=== PATIENT | female | born 1970 | race Two or more races ===

== ENCOUNTER 2025-03-10 20:32 | Inpatient (IN) | payer MEDICAID, OTHER ==
[~2025-03-10] VITALS: Ht 175.3 cm; Wt 63.0 kg
[2025-03-10] MEDS ORDERED: KETOROLAC TROMETH 30 MG/ML 1ML VIAL IV ONE (20:45)
--- NOTE | 2025-03-10 20:50 | ED.PDOC ---
GI ASSESSMENT HPI Comments 54 year old female came to ER via EMS due to abdominal pain. Patient picked up at [facility], has history of hypertension, CKF, encephalopathy and alcohol abuse. States for the past 3 days, she has been having diffuse abdominal pain with bouts of nausea and vomiting. States she could not keep anything in. Complaining also of back pains and headaches. Denies any recent alcohol intake, REVIEW OF SYSTEMS: General: No fever, no chills, or fatigue HEENT: No sore throat, no earache, no congestion, no neck pain. Cardiac: No chest pain. No palpitations. Lungs: No shortness of breath, no cough. GI: (+) nausea, (+) vomiting, no diarrhea, no constipation, (+) abdominal pain : No dysuria, frequency, or urgency. No hematuria. Musculoskeletal: No joint pain , no joint swelling, no extremity edema. (+)back pains Skin: No rash, no itching. Neuro: (+) headache, no dizziness, no weakness PHYSICAL EXAM: General: Awake, alert and oriented. No acute distress. Skin: Skin in warm, dry and intact. Appropriate color for ethnicity. HEENT: The head is normocephalic and atraumatic. Conjunctivae are clear without exudates or hemorrhage. Sclera is non-icteric. EOM are intact. No signs of nystagmus. Eyelids are normal in appearance without swelling or lesions. Oral mucosa is pink and moist Neck: The neck is supple with normal range of motion. No JVD. Cardiac: Heart rate and rhythm are normal. No murmurs, gallops, or rubs are auscultated. Respiratory: No signs of respiratory distress. Lung sounds are clear in all lobes bilaterally without rales, rhonchi, or wheezes. Abdominal: Abdomen is soft, generally-tender without distention, guarding or rigidity. Bowel sounds are present and normoactive in all four quadrants. Extremities: Upper and lower extremities are atraumatic in appearance without deformity or edema. Neurological: The patient is awake, alert and oriented to person, place, and time with normal speech. Speech is clear. There is no facial asymmetry. Psychiatric: Appropriate mood and affect. Good judgement and insight. Chief Complaint: Abdominal Pain Time Seen by MD: 20:46 Reviewed Notes: Court Advocate Notes Allergies: Coded Allergies: Tetanus Toxoid (Verified Allergy, Unknown, 03/10/25) Information Source: Patient, Emergency Med Personnel Mode of Arrival: EMS Past Medical History PAST MEDICAL HISTORY: CKF, HTN Surgical History: Denies all surgeries PROGRAM ANALYST History: Denies all PROGRAM ANALYST Hx Family History Family History: No family hx of Cancer Social History Smoker: Non-Smoker Alcohol: Heavy Drugs: Denies Drug Use Lives In: Assisted Care EKG EKG : Pulse Rate (adult): 95 Cardiac Rhythm: NSR Was a procedure done? Was a procedure done?: No GI differential Dx Differential Diagnosis: Diverticular disease, Gastritis/PUD, Gastroenteritis, Pancreatitis, UTI, Urolithiasis, Dehydration X-Ray, Labs, Meds, VS Vital Signs Date Time Temp Pulse Resp B/P (MAP) Pulse Ox O2 Delivery O2 Flow Rate FiO2 03/10/25 20:53 95 03/10/25 20:50 95 03/10/25 20:35 98.0 114 18 155/103 94 98.0 Lab Test 03/10/25 21:14 Range/Units White Blood Count 25.4 H 4.4-10.8 10^3/uL Red Blood Count 4.51 4.0-5.20 10^6/uL Hemoglobin 10.3 L 12.2-16.2 g/dL Hematocrit 33.1 L 36.0-46.0 % Mean Corpuscular Volume 73.3 L 80.0-100.0 fL Mean Corpuscular Hemoglobin 22.8 L 28.0-32.0 pg Mean Corpuscular Hemoglobin Concent 31.1 L 32.0-36.0 g/dL Red Cell Distribution Width 21.2 H 11.8-14.3 % Platelet Count 593 H 140-450 10^3/uL Mean Platelet Volume 8.4 6.9-10.8 fL Neutrophils (%) (Auto) 37.0-80.0 % Lymphocytes (%) (Auto) 10.0-50.0 % Monocytes (%) (Auto) 0.0-12.0 % Basophils (%) (Auto) 0.0-2.0 % Neutrophils # (Auto) 1.6-8.6 10 ^3/uL Lymphocytes # (Auto) 0.4-5.4 10 ^3/uL Monocytes # (Auto) 0-1.3 10 ^3/uL Differential Total Cells Counted 100.0 100 Neutrophils % (Manual) 90 H 37.0-80.0 Band Neutrophils % (Manual) 2 Lymphocytes % (Manual) 2 L 10.0-50.0 Monocytes % (Manual) 6 0-12 Eosinophils % (Manual) 0 0-7 Basophils % (Manual) 0 0.0-2.0 Metamyelocytes % (manual) 0 Myelocytes % (Manual) 0 Promyelocytes % (Manual) 0 Blast Cells % (Manual) 0 Reactive Lymphocytes 0 Platelet Estimate Increased Hypochromasia (manual) Moderate Anisocytosis (manual) Slight Microcytosis Moderate Sodium Level 135 L 136-145 mmol/L Potassium Level 3.6 3.5-5.1 mmol/L Chloride Level 99 98-107 mmol/L Carbon Dioxide Level 23 20-31 mmol/L Anion Gap 13 5-15 Blood Urea Nitrogen 17 9-23 mg/dL Creatinine 0.55 0.550-1.02 mg/dL Glomerular Filtration Rate Calc 110 >90 mL/min BUN/Creatinine Ratio 30.9 H 10.0-20.0 Serum Glucose 146 H 74-106 mg/dL Lactic Acid Level 1.6 0.4-2.0 mmol/L Calcium Level 9.5 8.7-10.4 mg/dL Total Bilirubin 0.6 0.2-1.0 mg/dL Aspartate Amino Transferase (AST) 13 13-40 U/L Alanine Aminotransferase (ALT) 10 7-40 U/L Alkaline Phosphatase 123 H 46-116 U/L Total Protein 7.8 5.7-8.2 g/dL Albumin 4.7 3.2-4.8 g/dL Lipase 26 12-53 U/L Plasma/Serum Blood Alcohol 3.0 <10 mg/dL Exam: CT CT AB PEL WO CON-NO ORAL OR IV History: n , vomiting, generalized abdominal pain Comparison Study: None TECHNIQUE: Multidetector CT of the abdomen and pelvis was performed from lung bases to pubic symphysis. Imaging was performed without IV contrast. Axial, coronal, and sagittal multiplanar reformats were obtained from the axial data set by the technologist. RADIATION DOSE: CTDI vol 7.9 mGy. DLP 483.17 mGy.cm Findings: Limited evaluation of the solid organs in the absence of IV contrast. Lungs: Basilar atelectasis/scarring. Trace left pleural effusion. Wall thickening of the distal esophagus. Liver: Unremarkable. Spleen: Unremarkable. Pancreas: Unremarkable. Gallbladder: Unremarkable. Adrenals: Unremarkable Kidneys: Unremarkable. Pelvic Viscera: Unremarkable. Vasculature: Mild atherosclerotic vascular calcification. Retroperitoneum: Shotty retroperitoneal nodes. Bowel: Portions of the bowel are decompressed, limiting assessment. Fluid-filled appearance of the small bowel. Musculoskeletal: Sclerotic changes across the opposing endplates of L4-5 with grade 1 anterolisthesis and loss of intervertebral disc height. Soft tissues: Unremarkable Impression: 1. Fluid-filled small bowel may reflect enteritis in the appropriate clinical setting. 2. Wall thickening of the distal esophagus, consider follow-up with endoscopy as clinically indicated. 3. Sclerotic changes across the opposing endplates of L4-5, possibly degenerative, though clinical correlation is suggested to exclude discitis/osteomyelitis. 4. Additional findings as detailed. Time of 1ST Reevaluation: 20:45 Reevaluation 1ST: Unchanged Patient Education/Counseling: Need For Follow Up Family Education/Counseling: No Family Present SEPSIS Sepsis Screen Physician Orders Drug Screen (03/10/25 20:42) Ct Ab Pel Wo Con-No Oral Or Iv (03/10/25 20:42) Electrocardigram (03/10/25 21:40) Vital Signs Date Time Temp Pulse Resp B/P (MAP) Pulse Ox O2 Delivery O2 Flow Rate FiO2 03/10/25 20:53 95 03/10/25 20:50 95 03/10/25 20:35 98.0 114 18 155/103 94 98.0 Laboratory Tests Test 03/10/25 21:14 Lactic Acid Level 1.6 mmol/L (0.4-2.0) White Blood Count 25.4 10^3/uL (4.4-10.8) H Departure 1 Departure Time of Disposition: 23:06 Impression: Primary Impression: Abdominal pain Additional Impression: Intractable nausea and vomiting Disposition: ADMITTED INPATIENT Condition: Stable Comments 54-year-old female who presented with intractable nausea, vomiting and abdominal pain. CT abdomen pelvis showed 1.Fluid-filled small bowel may reflect enteritis in the appropriate clinical setting. 2. Wall thickening of the distal esophagus, consider follow-up with endoscopy as clinically indicated. Patient admitted to hospitalist service for further treatment, evaluation and monitoring. Critical Care Note Critical Care Time?: No Stability Stability form required: No Heart Score Heart Score: Heart Score Response (Comments) Value History N/A 0 EKG N/A 0 Age N/A 0 Risk Factors N/A 0 Troponin N/A 0 Total 0 I personally scribed for ASIF DASH MD ([email or web address]) on 03/10/25 at 20:50. Electronically submitted by Daniel Jones ([employer]). I personally scribed for ASIF DASH MD ([email or web address]) on 03/10/25 at 20:53. Electronically submitted by Daniel Jones ([employer]). I personally scribed for ASIF DASH MD ([email or web address]) on 03/10/25 at 22:14. Electronically submitted by Daniel Jones ([employer]). ASIF DASH MD Mar 10, 2025 20:50
--- NOTE | 2025-03-10 21:30 | DVH ---
Exam: CT CT AB PEL WO CON-NO ORAL OR IV History: n , vomiting, generalized abdominal pain Comparison Study: None TECHNIQUE: Multidetector CT of the abdomen and pelvis was performed from lung bases to pubic symphysi s. Imaging was performed without IV contrast. Axial, coronal, and sagittal multiplanar reformats were obtained from the axial data set by the technologist. RADIATION DOSE: CTDI vol 7.9 mGy. DLP 483.17 mGy.cm Findings: Limited evaluation of the solid organs in the absence of IV contrast. Lungs: Basilar atelectasis/scarring. Trace left pleural effusion. Wall thickening of the distal esoph janneth. Liver: Unremarkable. Spleen: Unremarkable. Pancreas: Unremarkable. Gallbladder: Unremarkable. Adrenals: Unremarkable Kidneys: Unremarkable. Pelvic Viscera: Unremarkable. Vasculature: Mild atherosclerotic vascular calcification. Retroperitoneum: Shotty retroperitoneal nodes. Bowel: Portions of the bowel are decompressed, limiting assessment. Fluid-filled appearance of the sm all bowel. Musculoskeletal: Sclerotic changes across the opposing endplates of L4-5 with grade 1 anterolisthesis and loss of intervertebral disc height. Soft tissues: Unremarkable Impression: 1. Fluid-filled small bowel may reflect enteritis in the appropriate clinical setting. 2. Wall thickening of the distal esophagus, consider follow-up with endoscopy as clinically indicated . 3. Sclerotic changes across the opposing endplates of L4-5, possibly degenerative, though clinical co rrelation is suggested to exclude discitis/osteomyelitis. 4. Additional findings as detailed.
[2025-03-10 21:33] LABS: Hemoglobin 10.3 g/dL (12.2-16.2)
[2025-03-10 21:35] LABS: Hematocrit 33.1 % (36.0-46.0); Mean Corpuscular Hemoglobin 22.8 pg (28.0-32.0); Mean Corpuscular Volume 73.3 fL (80.0-100.0)
[2025-03-10 21:43] LABS: Alanine Aminotransferase 10 U/L (7-40); Albumin 4.7 g/dL (3.2-4.8); Anion Gap 13 (5-15); BUN/Creatinine Ratio 30.9 (10.0-20.0); Blood Urea Nitrogen 17 mg/dL (9-23); Calcium 9.5 mg/dL (8.7-10.4); Carbon Dioxide 23 mmol/L (20-31); Chloride 99 mmol/L (98-107); Lipase 26 U/L (12-53); Potassium 3.6 mmol/L (3.5-5.1); Total Protein 7.8 g/dL (5.7-8.2)
[2025-03-10 21:44] LABS: Bilirubin, Total 0.6 mg/dL (0.2-1.0)
[2025-03-10 21:47] LABS: Alkaline Phosphatase 123 U/L (46-116); Glucose 146 mg/dL (74-106); Sodium 135 mmol/L (136-145)
[2025-03-10 22:27] LABS: Total Cells Counted 100.0 (100)
[2025-03-10 22:28] LABS: Anisocytosis Slight
--- NOTE | 2025-03-10 23:58 | DVHHPRES ---
History of Present Illness Resident Creating Document: CAROLA SOLER RESIDENT History of Present Illness This is a 54-year-old female with a past medical history of hypertension, alcohol abuse who has come in with a chief complaint of abdominal pain for the past 3 days along with hematemesis of 2 episodes today morning. As per the patient she has had abdominal pain for the past 3 days and unable to keep any food down. she reports the pain began after she drank 1 and half can of beer after stopping it a few years ago. The pain is generalized all over the abdomen, 10/ 10 in intensity and not relieved by or aggravated by any factor. She says that is associated with Flu-like symptoms, nausea, headache, backache now. She also reports that she had 2 episodes of hematemesis, not mixed with any vomit today morning which prompted her to come to the visit. On inquiry patient states that she came from a [facility], which is a retired care facility and that there are many sick contacts around her. She denies any diarrhea, shortness of breath, other episodes of vomiting, chest pain or recent travel. Past medical history: Hypertension and alcohol abuse Past surgical history: Denies Family history: Denies any Allergies: To tetanus injection Social history: Patient denies drinking alcohol and reports she stopped many years ago but used to drink quite heavily, she smokes 4 cigarettes per day and it has only been 1 and half year, she denies any drug abuse Home medication: Does not take any Primary care physician: Does not have 1 Code status: Full code Review of Systems Constitutional: Yes: Weakness; No: Fever, Chills, Sweats, Malaise, Other Eyes: No: Pain, Vision change, Conjunctivae inflammation, Eyelid inflammation, Other, Redness ENT: No: Ear pain, Ear discharge, Nose pain, Nose discharge, Nose congestion, Mouth pain, Mouth swelling, Throat pain, Throat swelling, Other Respiratory: No: Cough, Dry, Shortness of breath, SOB with excertion, Wheezing, Hemoptysis, Pleuritic Pain, Sputum, Wheezing, Other Cardiovascular: No: Chest Pain, Palpitations, Orthopnea, Paroxysmal Noc. Dyspnea, Edema, Lt Headedness, Other Gastrointestinal: Vomiting, Abdominal Pain, Other (Hematemesis); No: Nausea, Diarrhea, Constipation, Melena, Hematochezia Genitourinary: No Dysuria, No Frequency, No Incontinence, No Hematuria, No Retention, No Other Musculoskeletal: No: other, neck pain, shoulder pain, arm pain, back pain, hand pain, leg pain, foot pain Skin: No: Rash, Lesions, Jaundice, Bruising, Other Neurological: No: Weakness, Numbness, Incoordination, Change in speech, Confusion, Seizures, Other Allergies: Coded Allergies: Tetanus Toxoid (Verified Allergy, Unknown, 03/10/25) Exam Vital Signs Vital Signs Date Time Temp Pulse Resp B/P (MAP) Pulse Ox O2 Delivery O2 Flow Rate FiO2 03/10/25 20:53 95 03/10/25 20:35 98.0 18 155/103 94 98.0 Exam General Appearance: Alert, Oriented X3, Cooperative, Not in acute distress HEENT: Atraumatic, Mucous membranes moist/pink Respiratory: Clear to auscultation, Normal air movement, No added sounds Cardiovascular: Regular rate, Normal S1, Normal S2, No murmurs Abdominal: Active bowel sounds, Soft, no distention, tenderness in all quadrants of the abdomen Extremities: No edema, Normal pulses, No tenderness/swelling Skin: No Significant rash, except past surgical scars Neuro: Normal speech, sensorimotor deficits none Psych/Mental Status: Mental status NL, Mood NL Nurse was there as forklift mechanic during examination Labs/Xrays Labs Test 03/10/25 21:14 Range/Units White Blood Count 25.4 H 4.4-10.8 10^3/uL Red Blood Count 4.51 4.0-5.20 10^6/uL Hemoglobin 10.3 L 12.2-16.2 g/dL Hematocrit 33.1 L 36.0-46.0 % Mean Corpuscular Volume 73.3 L 80.0-100.0 fL Mean Corpuscular Hemoglobin 22.8 L 28.0-32.0 pg Mean Corpuscular Hemoglobin Concent 31.1 L 32.0-36.0 g/dL Red Cell Distribution Width 21.2 H 11.8-14.3 % Platelet Count 593 H 140-450 10^3/uL Mean Platelet Volume 8.4 6.9-10.8 fL Neutrophils (%) (Auto) 37.0-80.0 % Lymphocytes (%) (Auto) 10.0-50.0 % Monocytes (%) (Auto) 0.0-12.0 % Basophils (%) (Auto) 0.0-2.0 % Neutrophils # (Auto) 1.6-8.6 10 ^3/uL Lymphocytes # (Auto) 0.4-5.4 10 ^3/uL Monocytes # (Auto) 0-1.3 10 ^3/uL Differential Total Cells Counted 100.0 100 Neutrophils % (Manual) 90 H 37.0-80.0 Band Neutrophils % (Manual) 2 Lymphocytes % (Manual) 2 L 10.0-50.0 Monocytes % (Manual) 6 0-12 Eosinophils % (Manual) 0 0-7 Basophils % (Manual) 0 0.0-2.0 Metamyelocytes % (manual) 0 Myelocytes % (Manual) 0 Promyelocytes % (Manual) 0 Blast Cells % (Manual) 0 Reactive Lymphocytes 0 Platelet Estimate Increased Hypochromasia (manual) Moderate Anisocytosis (manual) Slight Microcytosis Moderate Sodium Level 135 L 136-145 mmol/L Potassium Level 3.6 3.5-5.1 mmol/L Chloride Level 99 98-107 mmol/L Carbon Dioxide Level 23 20-31 mmol/L Anion Gap 13 5-15 Blood Urea Nitrogen 17 9-23 mg/dL Creatinine 0.55 0.550-1.02 mg/dL Glomerular Filtration Rate Calc 110 >90 mL/min BUN/Creatinine Ratio 30.9 H 10.0-20.0 Serum Glucose 146 H 74-106 mg/dL Lactic Acid Level 1.6 0.4-2.0 mmol/L Calcium Level 9.5 8.7-10.4 mg/dL Total Bilirubin 0.6 0.2-1.0 mg/dL Aspartate Amino Transferase (AST) 13 13-40 U/L Alanine Aminotransferase (ALT) 10 7-40 U/L Alkaline Phosphatase 123 H 46-116 U/L Total Protein 7.8 5.7-8.2 g/dL Albumin 4.7 3.2-4.8 g/dL Lipase 26 12-53 U/L Plasma/Serum Blood Alcohol 3.0 <10 mg/dL SEPSIS Sepsis Screen Date sepsis recognized/suspect: Mar 10, 2025 Time Sepsis recognized/suspect: 2034 Recent Procedure: No On Antibiotic Therapy: No Respiratory Rate >20: No Heart Rate >90: Yes Temp<36 C (96.8 F) or >38.3 C: No SBP <90 or MAP <65 mmHG: No New Acute Mental Status Change: No Is the patient on CPAP, BIPAP,: No Physician Orders Drug Screen (03/10/25 20:42) Ct Ab Pel Wo Con-No Oral Or Iv (03/10/25 20:42) Electrocardigram (03/10/25 21:40) Admit (03/10/25 23:56) Code Status (03/10/25 23:56) Ondansetron Hcl (Zofran) (03/11/25 00:00) Complete Blood Count (03/11/25 04:00) Comprehensive Metabolic Panel (03/11/25 04:00) Npo (Nothing By Mouth) Diet (03/11/25 Breakfast) Condition: Unstable (03/10/25 23:56) Acetaminophen Tablet (Tylenol Tablet) (03/11/25 00:00) Notify Of Changes From Base (03/10/25 23:56) Stat Ekg For Chest Pain (03/10/25 23:56) Vital Signs Date Time Temp Pulse Resp B/P (MAP) Pulse Ox O2 Delivery O2 Flow Rate FiO2 03/10/25 20:53 95 03/10/25 20:50 95 03/10/25 20:35 98.0 114 18 155/103 94 98.0 Laboratory Tests Test 03/10/25 21:14 Lactic Acid Level 1.6 mmol/L (0.4-2.0) White Blood Count 25.4 10^3/uL (4.4-10.8) H Assessment/Plan Assessment/Plan #Sepsis due to acute gastroenteritis #Possible esophagitis #Upper GI bleed -NPO -CT scan of the abdomen and pelvis without oral or IV contrast shows: Portions of the bowel are decompressed, limiting assessment. Fluid-filled appearance of the small bowel; Wall thickening of the distal esophagus, consider follow-up with endoscopy as clinically indicated. - GI consult - 2 wide caliber catheter was placed - IV fluid in his 0.9% 1 bolus - lactic acid - blood cultures - remove 10.5 mg IV q.4 PRN - metronidazole 500 mg IV Q 8 scheduled - ceftriaxone 1 g IV daily - COVID and flu tests - Protonix 80 mg IV once and 40 mg IV b.i.d. - liver ultrasound showed: unremarkable right upper quadrant abdominal ultrasound #anterolisthesis -CT scan of the abdomen and pelvis: Sclerotic changes across the opposing endplates of L4-5 with grade 1 anterolisthesis and loss of intervertebral disc height -outpatient followup # history of alcohol use disorder -Patient was counseled extensively on need of not taking alcohol again and the side effects, problems that it can cause for health of 8 minutes GI prophylaxis: Protonix 40 mg IV b.i.d. DVT prophylaxis: Held due to GI bleed Diet: NPO Goals of care discussed with the patient for more than 27 minutes: Full code status Case discussed with Dr. Borja, patient and nurse. Plan discussed with: Patient My Orders Orders - CAROLA SOLER RESIDENT Procedure Category Date Status Time Admit ADMIT 03/10/25 Verified 23:56 Code Status CODE 03/10/25 Verified 23:56 Ondansetron Hcl PHA 03/11/25 Verified (Zofran) 00:00 Complete Blood Count LAB 03/11/25 Verified 04:00 Comprehensive LAB 03/11/25 Verified Metabolic Panel 04:00 Npo (Nothing By DIET 03/11/25 Verified Mouth) Diet Breakfast Condition: Unstable RAMIN 03/10/25 Verified 23:56 Acetaminophen Tablet PHA 03/11/25 Verified (Tylenol Tablet) 00:00 Notify Md Of Changes RAMIN 03/10/25 Verified From Base 23:56 Stat Ekg For Chest RAMIN 03/10/25 Verified Pain 23:56 Date of Service: Mar 11, 2025 Billing Provider: JOSHUA BORJA MD Common Visit Codes: [id number] INP/OBS CARE (HIGH) CAROLA SOLER RESIDENT Mar 10, 2025 23:57 JOSHUA BOJRA MD Mar 16, 2025 11:54
[2025-03-11] MEDS ORDERED: ACETAMINOPHEN 325 MG TAB PO PRN
--- NOTE | 2025-03-11 00:32 | DVHHP2 ---
History of Present Illness HPI This is a 54-year-old female with a past medical history of hypertension, alcohol abuse who has come in with a chief complaint of abdominal pain for the past 3 days along with hematemesis of 2 episodes today morning. As per the patient she has had abdominal pain for the past 3 days and unable to keep any food down. she reports the pain began after she drank 1 and half can of beer after stopping it a few years ago. The pain is generalized all over the abdomen, 10/ 10 in intensity and not relieved by or aggravated by any factor. She says that is associated with Flu-like symptoms, nausea, headache, backache now. She also reports that she had 2 episodes of hematemesis, not mixed with any vomit today morning which prompted her to come to the visit. On inquiry patient states that she came from a [facility], which is a retired care facility and that there are many sick contacts around her. She denies any diarrhea, shortness of breath, other episodes of vomiting, chest pain or recent travel. Past medical history: Hypertension and alcohol abuse Past surgical history: Denies Family history: Denies any Allergies: To tetanus injection Social history: Patient denies drinking alcohol and reports she stopped many years ago but used to drink quite heavily, she smokes 4 cigarettes per day and it has only been 1 and half year, she denies any drug abuse Home medication: Does not take any Home Meds No Active Prescriptions or Reported Meds Review of Systems Constitutional: No symptom reported Ears, Nose, & Throat: No symptom reported Cardiovascular: No symptom reported Gastrointestinal: Nausea H&P Exam Vital Signs Vital Signs Date Time Temp Pulse Resp B/P (MAP) Pulse Ox O2 Delivery O2 Flow Rate FiO2 03/10/25 20:53 95 03/10/25 20:35 98.0 18 155/103 94 98.0 General Appeara: Well developed Head Exam: Normal inspection Neck Exam: Normal inspection Pulmonary/Respiratory: Normal inspection Cardiovascular/Chest: Normal inspection SEPSIS Sepsis Screen Date sepsis recognized/suspect: Mar 10, 2025 Time Sepsis recognized/suspect: 2034 Recent Procedure: No On Antibiotic Therapy: No Respiratory Rate >20: No Heart Rate >90: Yes Temp<36 C (96.8 F) or >38.3 C: No SBP <90 or MAP <65 mmHG: No New Acute Mental Status Change: No Is the patient on CPAP, BIPAP,: No Physician Orders Drug Screen (03/10/25 20:42) Ct Ab Pel Wo Con-No Oral Or Iv (03/10/25 20:42) Electrocardigram (03/10/25 21:40) Admit (03/10/25 23:56) Code Status (03/10/25 23:56) Ondansetron Hcl (Zofran) (03/11/25 00:00) Complete Blood Count (03/11/25 04:00) Comprehensive Metabolic Panel (03/11/25 04:00) Npo (Nothing By Mouth) Diet (03/11/25 Breakfast) Condition: Unstable (03/10/25 23:56) Acetaminophen Tablet (Tylenol Tablet) (03/11/25 00:00) Notify Of Changes From Base (03/10/25 23:56) Stat Ekg For Chest Pain (03/10/25 23:56) Pantoprazole (Protonix) (03/11/25 10:00) LIVER (03/10/25 23:58) Beta Hcg, Quantitative (03/10/25 23:58) Urinalysis (03/10/25 23:58) Covid19 Antigen Frances (03/10/25 ) Rapid Influenza A&B (03/10/25 23:58) Stool Occult Blood (03/10/25 23:58) Blood Culture (03/10/25 23:58) * [facility] Senior Analyst (03/10/25 23:58) Hydromorphone Injection (Dilaudid Inject (03/11/25 00:00) Lactic Acid W/ Reflex Order (03/10/25 23:58) Sodium Chloride 0.9% (03/11/25 00:00) Metronidazole 500mg/100ml (Flagyl 500mg/ (03/11/25 00:00) Metronidazole 500mg/100ml (Flagyl 500mg/ (03/11/25 06:00) Ceftriaxone 1gm/50ml (Rocephin) (03/12/25 09:00) Vital Signs Date Time Temp Pulse Resp B/P (MAP) Pulse Ox O2 Delivery O2 Flow Rate FiO2 03/10/25 20:53 95 03/10/25 20:50 95 03/10/25 20:35 98.0 114 18 155/103 94 98.0 Laboratory Tests Test 03/10/25 21:14 Lactic Acid Level 1.6 mmol/L (0.4-2.0) White Blood Count 25.4 10^3/uL (4.4-10.8) H Labs/Xrays Labs Test 03/10/25 21:14 Range/Units White Blood Count 25.4 H 4.4-10.8 10^3/uL Red Blood Count 4.51 4.0-5.20 10^6/uL Hemoglobin 10.3 L 12.2-16.2 g/dL Hematocrit 33.1 L 36.0-46.0 % Mean Corpuscular Volume 73.3 L 80.0-100.0 fL Mean Corpuscular Hemoglobin 22.8 L 28.0-32.0 pg Mean Corpuscular Hemoglobin Concent 31.1 L 32.0-36.0 g/dL Red Cell Distribution Width 21.2 H 11.8-14.3 % Platelet Count 593 H 140-450 10^3/uL Mean Platelet Volume 8.4 6.9-10.8 fL Neutrophils (%) (Auto) 37.0-80.0 % Lymphocytes (%) (Auto) 10.0-50.0 % Monocytes (%) (Auto) 0.0-12.0 % Basophils (%) (Auto) 0.0-2.0 % Neutrophils # (Auto) 1.6-8.6 10 ^3/uL Lymphocytes # (Auto) 0.4-5.4 10 ^3/uL Monocytes # (Auto) 0-1.3 10 ^3/uL Differential Total Cells Counted 100.0 100 Neutrophils % (Manual) 90 H 37.0-80.0 Band Neutrophils % (Manual) 2 Lymphocytes % (Manual) 2 L 10.0-50.0 Monocytes % (Manual) 6 0-12 Eosinophils % (Manual) 0 0-7 Basophils % (Manual) 0 0.0-2.0 Metamyelocytes % (manual) 0 Myelocytes % (Manual) 0 Promyelocytes % (Manual) 0 Blast Cells % (Manual) 0 Reactive Lymphocytes 0 Platelet Estimate Increased Hypochromasia (manual) Moderate Anisocytosis (manual) Slight Microcytosis Moderate Sodium Level 135 L 136-145 mmol/L Potassium Level 3.6 3.5-5.1 mmol/L Chloride Level 99 98-107 mmol/L Carbon Dioxide Level 23 20-31 mmol/L Anion Gap 13 5-15 Blood Urea Nitrogen 17 9-23 mg/dL Creatinine 0.55 0.550-1.02 mg/dL Glomerular Filtration Rate Calc 110 >90 mL/min BUN/Creatinine Ratio 30.9 H 10.0-20.0 Serum Glucose 146 H 74-106 mg/dL Lactic Acid Level 1.6 0.4-2.0 mmol/L Calcium Level 9.5 8.7-10.4 mg/dL Total Bilirubin 0.6 0.2-1.0 mg/dL Aspartate Amino Transferase (AST) 13 13-40 U/L Alanine Aminotransferase (ALT) 10 7-40 U/L Alkaline Phosphatase 123 H 46-116 U/L Total Protein 7.8 5.7-8.2 g/dL Albumin 4.7 3.2-4.8 g/dL Lipase 26 12-53 U/L Plasma/Serum Blood Alcohol 3.0 <10 mg/dL Assessment/Plan Primary Diagnosis #Sepsis due to acute gastroenteritis #Possible esophagitis #Upper GI bleed #anterolisthesis # history of alcohol use disorder admitted to med/surg consult to GI pain control Plan discussed with: Patient RUTHY ANN Mar 11, 2025 00:32
[2025-03-11 01:37] LABS: COVID19 ANTIGEN SOFIA FIA NEGATIVE (NEGATIVE)
--- NOTE | 2025-03-11 01:38 | DVH ---
INDICATION: rule out cirrhosis TECHNIQUE: Multiple real-time sonographic images were obtained of the right upper quadrant. COMPARISON: None FINDINGS: The liver demonstrates homogeneous echotexture without focal mass lesions. The liver measu res 12.2 cm. Normal hepatopetal portal venous flow appreciated. No evidence of pleural effusion or ab dominal ascites. There is no intrahepatic or extrahepatic ductal dilatation. The common duct measures 0.4 cm. The gallbladder is without evidence of stone or sludge. The gallbladder wall measures 0.2 cm and is w ithin normal limits. Negative sonographic Mcguire's sign. The right kidney measures 9.6 cm. The right kidney is normal in contour, size, and shape. The echogen icity is normal. There is no hydronephrosis. The pancreas is not well visualized due to overlying bowel gas. IMPRESSION: 1. Unremarkable right upper quadrant abdominal ultrasound.
[2025-03-11 04:03] VITALS: PULSE 140; RESP 20; O2SAT 95
[2025-03-11] MEDS: SODIUM CHLORIDE 0.9% 1,000 ML IV ONE ×2 (04:25)
[2025-03-11] MEDS: ONDANSETRON HCL 4 MG/2 ML VIAL IV ONE (04:25)
[2025-03-11] MEDS: PANTOPRAZOLE 40 MG/10 ML VIAL INJ IV ONE (04:25)
[2025-03-11] MEDS: HYDROmorphone HCL 2 MG/ML VL/or syr IV PRN (04:27)
[2025-03-11] MEDS: HYDROmorphone HCL 2 MG/ML VL/or syr IV ONE (04:40)
--- NOTE | 2025-03-11 05:45 | DVH ---
CHEST RADIOGRAPH Indication: sob Technique: Single frontal view of the chest was obtained COMPARISON: None FINDINGS: Lines and Tubes: None Lungs: Clear Pleura: No effusion. No pneumothorax. Cardiomediastinal contours: Unremarkable Bones: Unremarkable IMPRESSION: 1. No acute disease.
[2025-03-11] MEDS: LABETALOL HCL 20 MG/4 ML VL IV ONE (06:44)
--- NOTE | 2025-03-11 06:46 | ECG ---
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
[2025-03-11] MEDS: NICOTINE 7MG/24HR TOPICAL PATCH TD ONE (06:48)
[2025-03-11 07:14] LABS: Hematocrit 26.4 % (36.0-46.0); Hemoglobin 8.1 g/dL (12.2-16.2); Mean Corpuscular Hemoglobin 22.9 pg (28.0-32.0); Mean Corpuscular Volume 74.5 fL (80.0-100.0); Nucleated Red Blood Cells % 0.0 %
[2025-03-11 07:30] LABS: INR 1.07 (0.9-1.15); Partial Thromboplastin Time 25.0 SEC (24.5-34.5); Prothrombin Time 11.3 sec (9.3-11.8)
[2025-03-11 07:31] LABS: Albumin 3.8 g/dL (3.2-4.8); Alkaline Phosphatase 96 U/L (46-116); Anion Gap 8 (5-15); BUN/Creatinine Ratio 37.0 (10.0-20.0); Blood Urea Nitrogen 17 mg/dL (9-23); Carbon Dioxide 24 mmol/L (20-31); Chloride 105 mmol/L (98-107); Sodium 137 mmol/L (136-145); Total Protein 6.4 g/dL (5.7-8.2)
[2025-03-11 07:32] LABS: Alanine Aminotransferase < 9 U/L (7-40); Bilirubin, Total 0.3 mg/dL (0.2-1.0); Calcium 7.7 mg/dL (8.7-10.4); Glucose 125 mg/dL (74-106); Iron 18.0 ug/dL (50-170); Potassium 3.3 mmol/L (3.5-5.1); Total Iron Binding Capacity 338.0 ug/dL (250-425)
[2025-03-11 07:34] VITALS: PULSE 69; RESP 15; O2SAT 95
[2025-03-11] MEDS: PANTOPRAZOLE 40 MG/10 ML VIAL INJ IV SCH (11:02)
--- NOTE | 2025-03-11 14:08 | DVHPN2 ---
Progress Note Date Seen: Mar 11, 2025 Medical Necessity Reason Pt with a Central, PICC or Fol: No Subjective Review of Systems: HEENT:Normal, CVS:Normal, RESPIRATORY:Normal, GI:Normal, :Normal, MSK:Normal Objective vital signs Vital Sign Date Time Temp Pulse Resp B/P (MAP) Pulse Ox O2 Delivery O2 Flow Rate FiO2 03/11/25 12:34 74 121/71 03/11/25 07:34 15 95 Room Air* 0 21 03/11/25 07:34 97.5 97.5 Total Intake and Output 03/10/25 03/10/25 03/11/25 15:00 23:00 07:00 Intake Total 1150 ml Output Total 500 ml Balance 650 ml medications Current Medications Medications Dose Ordered Sig/Britni Route Start Time Stop Time Status Last Admin Dose Admin Ondansetron HCl 4 mg Q4HP PRN IV 03/11/25 00:00 Pantoprazole Sodium 40 mg BID IV 03/11/25 10:00 03/11/25 11:47 40 MG Hydromorphone HCl 0.25 mg Q4HPRN PRN IV 03/11/25 00:00 03/11/25 04:27 0.25 MG Metronidazole 100 ml @ 100 mls/hr Q8HR IV 03/11/25 06:00 Ceftriaxone Sodium 50 ml @ 100 mls/hr DAILY@09 IV 03/12/25 09:00 Examination: GENERAL:Normal, HEENT:Normal, NECK:Normal, LUNGS:Normal, CVS:Normal, ABDOMEN:Normal, MSK:Normal laboratory and microbiology Laboratory Tests 03/11/25 06:53 Test 03/11/25 06:53 Range/Units Serum Glucose 125 H 74-106 mg/dL Labs and/or images reviewed: Labs reviewed by me Problem List/Assessment/Plan Problem List/Assessment/Plan acute Abdominal pain Enteritis Anemia Hematemesis #Sepsis due to acute gastroenteritis #Possible esophagitis #Upper GI bleed #anterolisthesis # history of alcohol use disorder GI prophylaxis: Protonix 40 mg IV b.i.d. DVT prophylaxis: Held due to GI bleed Diet: NPO 03/11/2025: doing a bit better, pending EGD per GI Plan discussed with: Patient RUTHY ANN DO Mar 11, 2025 14:08
--- NOTE | 2025-03-11 16:56 | DVHINCON2 ---
Date of service: Mar 11, 2025 Referring Physician Miladys Reason for Consultation Hematemesis History of Present Illness Patient is a 54-year-old female with a history of hypertension, prior history of heavy alcohol abuse, admitted with nausea vomiting, and hematemesis. Patient has abdominal pain around the umbilicus. CT scan shows possible enteritis and possible esophagitis. Patient denies any recent ETOH intake. She has a history of tobacco use. She denies any aspirin NSAIDs or anticoagulant use. Patient denies any history of melena or hematochezia. She has no prior history of EGD or GI bleeding. GI consultation was obtained for evaluation Past Medical History As above Past Surgical History Denies Family History No gastrointestinal diseases or malignancies Social History As per HPI prior history of heavy EtOH abuse Allergies: Coded Allergies: Tetanus Toxoid (Verified Allergy, Unknown, 03/10/25) Current Medications Current Medications Medications (Trade) Dose Ordered Sig/Britni Route PRN Reason Start Time Stop Time Status Last Admin Ondansetron HCl (Zofran) 4 mg Q4HP PRN IV NAUSEA / VOMITING 03/11/25 00:00 Acetaminophen (Tylenol Tablet) 650 mg Q6HP PRN PO PAIN SCALE 1-3 OR TEMP>100.4 03/11/25 00:00 03/11/25 04:31 DC Pantoprazole Sodium (Protonix) 40 mg BID IV 03/11/25 10:00 03/11/25 11:47 Hydromorphone HCl (Dilaudid Injection) 0.25 mg Q4HPRN PRN IV SEVERE PAIN (7-10 PAIN SCALE) 03/11/25 00:00 03/11/25 04:27 Metronidazole 100 ml @ 100 mls/hr Q8HR IV 03/11/25 06:00 Ceftriaxone Sodium 50 ml @ 100 mls/hr DAILY@09 IV 03/12/25 09:00 Review of Systems 12 point review of systems as per HPI Vital Signs Vital Signs Date Time Temp Pulse Resp B/P (MAP) Pulse Ox O2 Delivery O2 Flow Rate FiO2 03/11/25 12:34 74 121/71 03/11/25 07:34 15 95 Room Air* 0 21 03/11/25 07:34 97.5 97.5 Physical Exam General: disheveled, chronically ill-appearing HEENT: NC/AT EOMI PERRLA O/P clear, no JVD or cervical lymphadenopathy, no sc leral icterus, poor dentition Heart: Regular rate and rhythm, no murmurs rubs or gallops Lungs: Clear to auscultation bilaterally, no wheezes rales or rhonchi Abdomen: Soft, moderate tenderness to palpation Extremity: No clubbing cyanosis or edema, no rashes or bruises Neuro: Cranial nerves 2-12 grossly intact, moves all four extremities, no asterixis Labs/Diagnostic Data Labs Test 03/11/25 06:53 03/11/25 00:52 03/10/25 21:14 Range/Units White Blood Count 18.7 #H 4.4-10.8 10^3/uL Red Blood Count 3.55 L 4.0-5.20 10^6/uL Hemoglobin 8.1 #L 12.2-16.2 g/dL Hematocrit 26.4 #L 36.0-46.0 % Mean Corpuscular Volume 74.5 L 80.0-100.0 fL Mean Corpuscular Hemoglobin 22.9 L 28.0-32.0 pg Mean Corpuscular Hemoglobin Concent 30.7 L 32.0-36.0 g/dL Red Cell Distribution Width 20.4 H 11.8-14.3 % Platelet Count 367 140-450 10^3/uL Mean Platelet Volume 8.3 6.9-10.8 fL Neutrophils (%) (Auto) 90.0 H 37.0-80.0 % Lymphocytes (%) (Auto) 3.7 L 10.0-50.0 % Monocytes (%) (Auto) 5.4 0.0-12.0 % Eosinophils (%) (Auto) 0.1 0.0-7.0 % Basophils (%) (Auto) 0.8 0.0-2.0 % Neutrophils # (Auto) 16.9 H 1.6-8.6 10 ^3/uL Lymphocytes # (Auto) 0.7 0.4-5.4 10 ^3/uL Monocytes # (Auto) 1.0 0-1.3 10 ^3/uL Eosinophils # (Auto) 0 0-0.8 10 ^3/uL Basophils # (Auto) 0.2 0-0.2 10 ^3/uL Nucleated Red Blood Cells 0.0 % Prothrombin Time 11.3 9.3-11.8 sec Prothrombin Time INR 1.07 0.9-1.15 Activated Partial Thromboplast Time 25.0 24.5-34.5 SEC Sodium Level 137 136-145 mmol/L Potassium Level 3.3 L 3.5-5.1 mmol/L Chloride Level 105 98-107 mmol/L Carbon Dioxide Level 24 20-31 mmol/L Anion Gap 8 5-15 Blood Urea Nitrogen 17 9-23 mg/dL Creatinine 0.46 L 0.550-1.02 mg/dL Glomerular Filtration Rate Calc 114 >90 mL/min BUN/Creatinine Ratio 37.0 H 10.0-20.0 Serum Glucose 125 H 74-106 mg/dL Lactic Acid Level 0.9 0.4-2.0 mmol/L Calcium Level 7.7 L 8.7-10.4 mg/dL Iron Level 18 L 50-170 ug/dL Total Iron Binding Capacity 338 250-425 ug/dL Percent Iron Saturation 5.3 L 15-50 % Ferritin 9.5 L 10-291 ng/mL Total Bilirubin 0.3 0.2-1.0 mg/dL Aspartate Amino Transferase (AST) 11 L 13-40 U/L Alanine Aminotransferase (ALT) < 9 7-40 U/L Alkaline Phosphatase 96 46-116 U/L Total Protein 6.4 5.7-8.2 g/dL Albumin 3.8 3.2-4.8 g/dL Influenza Type A Antigen Negative Negative Influenza Type B Antigen Negative Negative SARS-CoV-2 Antigen (Rapid) Negative NEGATIVE Differential Total Cells Counted 100.0 100 Neutrophils % (Manual) 90 H 37.0-80.0 Band Neutrophils % (Manual) 2 Lymphocytes % (Manual) 2 L 10.0-50.0 Monocytes % (Manual) 6 0-12 Eosinophils % (Manual) 0 0-7 Basophils % (Manual) 0 0.0-2.0 Metamyelocytes % (manual) 0 Myelocytes % (Manual) 0 Promyelocytes % (Manual) 0 Blast Cells % (Manual) 0 Reactive Lymphocytes 0 Platelet Estimate Increased Hypochromasia (manual) Moderate Anisocytosis (manual) Slight Microcytosis Moderate Lipase 26 12-53 U/L Beta HCG, Quantitative 3.2 1.5-4.2 mIU/mL Plasma/Serum Blood Alcohol 3.0 <10 mg/dL Assessment 1. Abdominal pain 2. Enteritis 3. Anemia 4. Hematemesis Differential diagnosis includes esophagitis, versus gastritis, versus Yeimy- [place] tear versus other Problems(with codes): (1) Abdominal pain (2) Intractable nausea and vomiting Plan/Recommendation 1. Clear liquid diet 2. NPO after midnight 3. Protonix twice daily 4. EGD tomorrow 5. Further recommendations after EGD 6. Risks benefits and alternatives were discussed at length with the patient. 7. Consider colonoscopy if endoscopy is negative Plan discussed with: Patient RAMA MOON MD Mar 11, 2025 16:56
[2025-03-11 17:00] VITALS: BP 100/54; PULSE 97; RESP 18; TEMP 98.7; O2SAT 96
[2025-03-11 20:00] VITALS: PULSE 92
[2025-03-11 21:00] VITALS: BP 120/78; PULSE 89; RESP 16; TEMP 98.4; O2SAT 93
[2025-03-12] VITALS (10 sets, daily range): BP systolic 102–114; BP diastolic 65–74; PULSE 62–91; RESP 16–22; TEMP 97.7–98.5; O2SAT 92–99
[2025-03-12] MEDS ORDERED: AZITHROMYCIN 500MG/ 250ML 250 ML IV SCH (10:00)
--- NOTE | 2025-03-12 12:09 | DVHPN2 ---
Progress Note Date Seen: Mar 12, 2025 Medical Necessity Reason Pt with a Central, PICC or Fol: No Subjective Review of Systems: HEENT:Normal, CVS:Normal, RESPIRATORY:Normal Objective vital signs Vital Sign Date Time Temp Pulse Resp B/P (MAP) Pulse Ox O2 Delivery O2 Flow Rate FiO2 03/12/25 08:39 97.7 91 20 102/71 (81) 95 97.7 03/12/25 08:00 Room Air* 0 21 Total Intake and Output 03/11/25 03/11/25 03/12/25 15:00 23:00 07:00 Intake Total 100 ml 100 ml Balance 100 ml 100 ml medications Current Medications Medications Dose Ordered Sig/Britni Route Start Time Stop Time Status Last Admin Dose Admin Ondansetron HCl 4 mg Q4HP PRN IV 03/11/25 00:00 Pantoprazole Sodium 40 mg BID IV 03/11/25 10:00 03/12/25 09:07 40 MG Hydromorphone HCl 0.25 mg Q4HPRN PRN IV 03/11/25 00:00 03/11/25 04:27 0.25 MG Metronidazole 100 ml @ 100 mls/hr Q8HR IV 03/11/25 06:00 03/12/25 05:36 100 MLS/HR Ceftriaxone Sodium 50 ml @ 100 mls/hr DAILY@09 IV 03/12/25 09:00 03/12/25 09:07 100 MLS/HR Examination: GENERAL:Normal, CVS:Normal, ABDOMEN:Normal, MSK:Normal, SKIN:Normal, NEURO:Normal, :Normal laboratory and microbiology Laboratory Tests 03/11/25 06:53 Test 03/11/25 06:53 Range/Units Serum Glucose 125 H 74-106 mg/dL Labs and/or images reviewed: Labs reviewed by me, Image(s) reviewed by me Problem List/Assessment/Plan Problem List/Assessment/Plan acute Abdominal pain Enteritis Anemia Hematemesis #Sepsis due to acute gastroenteritis #Possible esophagitis #Upper GI bleed #anterolisthesis # history of alcohol use disorder GI prophylaxis: Protonix 40 mg IV b.i.d. DVT prophylaxis: Held due to GI bleed Diet: NPO 03/11/2025: doing a bit better, pending EGD per GI 03/12/2025: pending EGD. Plan discussed with: Patient My Orders My Orders Orders - RUTHY ANN DO Procedure Category Date Status Time Blood Culture MACO 03/11/25 In Process 15:42 Metronidazole PHA 03/12/25 Logged 500mg/100ml (Flagyl 14:00 RUTHY ANN DO Mar 12, 2025 12:09
[2025-03-12] MEDS: MIDAZOLAM HCL 5 MG/ML-1ML VIAL ONE ×2 (15:16→15:23)
[2025-03-12] MEDS: fentaNYL CITRATE 100 MCG/2 ML VL ONE (15:16)
[2025-03-12] MEDS ORDERED: SODIUM CHLORIDE LOCK 10 ML ONE (15:27)
--- NOTE | 2025-03-12 15:31 | DVHNC2 ---
Procedure - PROCEDURE DATE: 03/12/2025 PROCEDURE PERFORMED BY: Juan Moon MD REFERRING PROVIDER: Dr Cory Vann PROCEDURE PERFORMED: 1. ESOPHAGOGASTRODUODENOSCOPY WITH MODERATE SEDATION PRE-PROCEDURE DIAGNOSIS: 1. ABDOMINAL PAIN 2. HEMATEMESIS POSTPROCEDURE DIAGNOSIS: 1. SUSPECTED YEIMY-[place]ST[place] TEAR AT GE JUNCTION 2. MILD EROSIVE GASTRITIS IN THE ANTRUM 3. SMALL HIATAL HERNIA INDICATIONS FOR PROCEDURE: The patient is a pleasant 54-year-old female admitted with GI bleed and abdominal pain. Patient had hematemesis. EGD format is warranted for evaluation MEDICATIONS USED: 6 mg of Versed IV and 75 mcg of fentanyl IV DETAILS OF THE PROCEDURE: Informed consent was obtained after risks benefits and alternatives were discussed at length with the patient. The patient gave consent to the procedure as well as the medication used for sedation. The patient was placed in left lateral decubitus position. Olympus endoscope was inserted into the oropharynx advanced into the esophagus then into the stomach then into the duodenal bulb and duodenum. The duodenal bulb and duodenum were normal. The scope was then withdrawn. Patient had erosive gastritis near the pylorus. No biopsies were taken. Patient had retching in was not fully sedated. Retroflexion showed a small hiatal hernia. The proximal stomach was evaluated there were no large masses, varices, ulcers or any abnormality seen. There was no old blood or fresh blood seen. The scope was then withdrawn. Patient had a 2 cm hiatal hernia with the Z-line at 39 cm. There appeared to be inflammation with associated Yeimy-[place] tear at the GE junction. The scope was then withdrawn the procedure completed. The patient tolerated the procedure well IMPRESSION: 1. Findings consistent with Yeimy-[place] tear, likely cause of bleeding 2. Mild erosive gastritis 3. Small hiatal hernia RECOMMENDATIONS: 1. Anti-reflux precautions 2. Proton pump inhibitor twice daily 3. Avoid aspirin NSAIDs and anticoagulants 4. Caution with spicy food, greasy food, alcohol, citrus 5. Follow H&H 6. Antiemetics as needed 7. Diet as tolerated 8. I will follow I WOULD LIKE TO THANK DR. PERRY FOR THIS REFERRAL JUAN MOON MD Mar 12, 2025 15:31
[2025-03-13] VITALS (8 sets, daily range): BP systolic 109–135; BP diastolic 73–89; PULSE 18–87; RESP 16–95; TEMP 97.5–99.1; O2SAT 94–98
--- NOTE | 2025-03-13 08:26 | DVHPN2 ---
Progress Note Date Seen: Mar 13, 2025 Medical Necessity Reason Pt with a Central, PICC or Fol: No Objective vital signs Vital Sign Date Time Temp Pulse Resp B/P (MAP) Pulse Ox O2 Delivery O2 Flow Rate FiO2 03/13/25 05:00 98.6 73 16 117/85 (96) 95 98.6 03/12/25 20:00 Nasal Cannula* 2 28 Total Intake and Output 03/12/25 03/12/25 03/13/25 15:00 23:00 07:00 Intake Total 200 ml 100 ml 100 ml Balance 200 ml 100 ml 100 ml medications Current Medications Medications Dose Ordered Sig/Britni Route Start Time Stop Time Status Last Admin Dose Admin Ondansetron HCl 4 mg Q4HP PRN IV 03/11/25 00:00 Pantoprazole Sodium 40 mg BID IV 03/11/25 10:00 03/12/25 21:09 40 MG Hydromorphone HCl 0.25 mg Q4HPRN PRN IV 03/11/25 00:00 03/11/25 04:27 0.25 MG Ceftriaxone Sodium 50 ml @ 100 mls/hr DAILY@09 IV 03/12/25 09:00 03/12/25 09:07 100 MLS/HR Metronidazole 100 ml @ 100 mls/hr Q8HR IV 03/12/25 14:00 03/13/25 05:28 100 MLS/HR laboratory and microbiology Laboratory Tests 03/11/25 06:53 Test 03/11/25 06:53 Range/Units Serum Glucose 125 H 74-106 mg/dL Microbiology Date/Time Source Procedure Growth Status 03/11/25 17:30 Blood Blood Culture - Preliminary NO GROWTH AFTER 24 HOURS OF INCUBATION. Resulted Labs and/or images reviewed: Labs reviewed by me, Image(s) reviewed by me Problem List/Assessment/Plan Problem List/Assessment/Plan acute Abdominal pain Enteritis Anemia Hematemesis #Sepsis due to acute gastroenteritis #Possible esophagitis #Upper GI bleed #anterolisthesis # history of alcohol use disorder GI prophylaxis: Protonix 40 mg IV b.i.d. DVT prophylaxis: Held due to GI bleed Diet: NPO 03/11/2025: doing a bit better, pending EGD per GI 03/12/2025: pending EGD. 03/13/2025: completed EGD on Friday. still has some pain will advance diet and if does well, d/c within 24 hours Plan discussed with: Patient My Orders My Orders Orders - RUTHY ANN DO Procedure Category Date Status Time Metronidazole PHA 03/12/25 In Process 500mg/100ml (Flagyl 14:00 Dietary Evaluation Review Comments: 1) If patient remains NPO > 7 days, consider EN/TPN to meet at least 75% estimated daily needs 2) Advance to cardiac diet when medically feasible 3) Follow-up with gastroenterology and cardiology 4) Follow-up with professor of social work r/t ETOH abuse 5) Continue to monitor I&O, labs, and skin integrity Expected Outcomes/Goals: 1) patient to receive nutritional support within 7 days of NPO status 2) labs to improve 3) diet to advance 4) f/u in 3-5 days RUTHY ANN DO Mar 13, 2025 08:26
[2025-03-13 10:14] LABS: Hematocrit 24.1 % (36.0-46.0)
[2025-03-13 10:17] LABS: Hemoglobin 7.6 g/dL (12.2-16.2); Mean Corpuscular Hemoglobin 23.3 pg (28.0-32.0); Mean Corpuscular Volume 74.1 fL (80.0-100.0); Nucleated Red Blood Cells % 0.1 %
--- NOTE | 2025-03-13 16:16 | PRN ---
Misceleneous Note Note Note 03/13/2025 Subjective: Patient states that she is doing better. She has no bleeding She is status post EGD format Vital Signs Date Time Temp Pulse Resp B/P (MAP) Pulse Ox O2 Delivery O2 Flow Rate FiO2 03/13/25 13:00 98.7 80 16 118/76 (90) 96 98.7 03/13/25 08:00 Nasal Cannula* 2 28 General: Well-developed well-nourished HEENT: NC/AT EOMI PERRLA O/P clear, no JVD or cervical lymphadenopathy, no scleral icterus Heart: Regular rate and rhythm, no murmurs rubs or gallops Lungs: Clear to auscultation bilaterally, no wheezes rales or rhonchi Abdomen: Soft, nontender, nondistended, no organomegaly, normoactive bowel sounds Extremity: No clubbing cyanosis or edema, no rashes or bruises Neuro: Cranial nerves 2-12 grossly intact, moves all four extremities, no a sterixis Labs reviewed Hemoglobin 7.6 Impression: History of alcohol abuse Anemia Hematemesis Microcytosis Esophagogastroduodenoscopy findings do not explain patient's anemia or symptoms Recommendations: 1. Consider inpatient versus outpatient colonoscopy 2. Follow H&H 3. Proton pump inhibitor daily 4. I will be signing off to Dr. Alamo 5. Consider non GI sources RAMA MOON MD Mar 13, 2025 16:16
[2025-03-14] VITALS (8 sets, daily range): BP systolic 112–128; BP diastolic 71–85; PULSE 68–88; RESP 16–18; TEMP 98.2–99.6; O2SAT 93–98
[2025-03-14] MEDS: ONDANSETRON HCL 4 MG/2 ML VIAL IV PRN (01:47)
--- NOTE | 2025-03-14 17:01 | DVHPN2 ---
Progress Note - Dictate Date Seen: Mar 14, 2025 Medical Necessity Reason Pt with a Central, PICC or Fol: No Subjective No new complaints, patient is sleeping at this time No active GI bleeding is reported but her hemoglobin did drift down to 7.6 Stool for occult blood is pending EGD findings noted:Patient had esophagitis with possible small Yeimy-Palmer tear with no active bleeding bile gastritis vital signs Vital Sign Date Time Temp Pulse Resp B/P (MAP) Pulse Ox O2 Delivery O2 Flow Rate FiO2 03/14/25 13:00 99.2 87 18 112/81 (91) 97 99.2 03/14/25 08:00 Nasal Cannula* 2 28 Total Intake and Output 03/13/25 03/13/25 03/14/25 15:00 23:00 07:00 Intake Total 50 ml 740 ml 500 ml Output Total 300 ml Balance 50 ml 440 ml 500 ml medications Current Medications Medications Dose Ordered Sig/Britni Route Start Time Stop Time Status Last Admin Dose Admin Ondansetron HCl 4 mg Q4HP PRN IV 03/11/25 00:00 03/14/25 01:47 4 MG Pantoprazole Sodium 40 mg BID IV 03/11/25 10:00 03/14/25 08:41 40 MG Hydromorphone HCl 0.25 mg Q4HPRN PRN IV 03/11/25 00:00 03/11/25 04:27 0.25 MG Ceftriaxone Sodium 50 ml @ 100 mls/hr DAILY@09 IV 03/12/25 09:00 03/14/25 08:42 100 MLS/HR Metronidazole 100 ml @ 100 mls/hr Q8HR IV 03/12/25 14:00 03/14/25 15:30 100 MLS/HR objective General Appearance: Alert, Oriented X3, Cooperative, Not in acute distress HEENT: Atraumatic, Mucous membranes moist/pink Respiratory: Clear to auscultation, Normal air movement, No added sounds Cardiovascular: Regular rate, Normal S1, Normal S2, No murmurs Abdominal: Active bowel sounds, Soft, no distention, tenderness in all quadrants of the abdomen Extremities: No edema, Normal pulses, No tenderness/swelling Skin: No Significant rash, except past surgical scars Neuro: Normal speech, sensorimotor deficits none Psych/Mental Status: Mental status NL, Mood NL Nurse was there as systems software engineer during examination laboratory and microbiology Laboratory Tests 03/13/25 09:57 03/11/25 06:53 Test 03/11/25 06:53 Range/Units Serum Glucose 125 H 74-106 mg/dL Problems(with codes): (1) Hiatal hernia (2) Yeimy-Palmer tear (3) Anemia (4) Intractable nausea and vomiting (5) Abdominal pain Prognosis Plan Conservative management for now ; monitor labs Continue IV Protonix 40 mg q.12 hours Carafate suspension 1 g 4 times a day Change to a soft mechanical diet Stool for occult blood, iron panel Elective colonoscopy once medically stabilized Dietary Evaluation Review Comments: 1) If patient remains NPO > 7 days, consider EN/TPN to meet at least 75% estimated daily needs 2) Advance to cardiac diet when medically feasible 3) Follow-up with gastroenterology and cardiology 4) Follow-up with social science research assistant r/t ETOH abuse 5) Continue to monitor I&O, labs, and skin integrity Expected Outcomes/Goals: 1) patient to receive nutritional support within 7 days of NPO status 2) labs to improve 3) diet to advance 4) f/u in 3-5 days Plan discussed with: Other (Nurse) ELA RAMIREZ MD Mar 14, 2025 17:01
[2025-03-14 17:06] LABS: Hematocrit 25.0 % (36.0-46.0); Hemoglobin 7.7 g/dL (12.2-16.2); Mean Corpuscular Hemoglobin 23.0 pg (28.0-32.0); Mean Corpuscular Volume 74.6 fL (80.0-100.0); Nucleated Red Blood Cells % 0.0 %
[2025-03-14] MEDS: SUCRALFATE 1 GM/10 ML ORAL SUSP PO SCH (17:40)
[2025-03-15] VITALS (8 sets, daily range): BP systolic 112–139; BP diastolic 71–95; PULSE 72–99; RESP 16–18; TEMP 97.9–98.4; O2SAT 95–97
[2025-03-15 07:09] LABS: Hematocrit 28.8 % (36.0-46.0); Mean Corpuscular Hemoglobin 24.4 pg (28.0-32.0)
[2025-03-15 07:12] LABS: Hemoglobin 9.2 g/dL (12.2-16.2); Mean Corpuscular Volume 76.6 fL (80.0-100.0); Nucleated Red Blood Cells % 0.2 %
[2025-03-15 07:24] LABS: Iron 35.0 ug/dL (50-170); Total Iron Binding Capacity 283.0 ug/dL (250-425)
[2025-03-15] MEDS: THIAMINE HCL 100 MG TAB PO SCH (12:27)
[2025-03-15] MEDS: IRON SUCROSE COMPLEX 110 ML IV SCH (12:27)
--- NOTE | 2025-03-15 14:21 | DVHPN2 ---
Progress Note Date Seen: Mar 14, 2025 Medical Necessity Reason Pt with a Central, PICC or Fol: No Subjective Review of Systems: HEENT:Normal Objective vital signs Vital Sign Date Time Temp Pulse Resp B/P (MAP) Pulse Ox O2 Delivery O2 Flow Rate FiO2 03/15/25 08:40 98.3 90 18 139/95 (110) 96 98.3 03/15/25 08:00 Room Air* 0 21 Total Intake and Output 03/14/25 03/14/25 03/15/25 14:59 22:59 06:59 Intake Total 50 ml 300 ml 1000 ml Balance 50 ml 300 ml 1000 ml medications Current Medications Medications Dose Ordered Sig/Britni Route Start Time Stop Time Status Last Admin Dose Admin Ondansetron HCl 4 mg Q4HP PRN IV 03/11/25 00:00 03/14/25 22:08 4 MG Pantoprazole Sodium 40 mg BID IV 03/11/25 10:00 03/15/25 09:51 40 MG Hydromorphone HCl 0.25 mg Q4HPRN PRN IV 03/11/25 00:00 03/11/25 04:27 0.25 MG Ceftriaxone Sodium 50 ml @ 100 mls/hr DAILY@09 IV 03/12/25 09:00 03/15/25 09:51 100 MLS/HR Metronidazole 100 ml @ 100 mls/hr Q8HR IV 03/12/25 14:00 03/15/25 05:58 100 MLS/HR Iron Sucrose 110 ml @ 110 mls/hr DAILY@1200 IV 03/15/25 12:00 03/19/25 12:59 03/15/25 12:27 110 MLS/HR Sucralfate 1 gm QID@0600,1130,1700,2200 PO 03/14/25 17:00 03/15/25 12:28 1 GM Thiamine HCl 100 mg DAILY PO 03/15/25 10:00 03/15/25 12:27 100 MG Examination: GENERAL:Normal laboratory and microbiology Laboratory Tests 03/15/25 05:45 03/11/25 06:53 Test 03/11/25 06:53 Range/Units Serum Glucose 125 H 74-106 mg/dL Microbiology Date/Time Source Procedure Growth Status 03/11/25 17:30 Blood Blood Culture - Preliminary NO GROWTH AFTER 72 HOURS OF INCUBATION. Resulted Labs and/or images reviewed: Labs reviewed by me, Image(s) reviewed by me Problem List/Assessment/Plan Problem List/Assessment/Plan acute Abdominal pain Enteritis Anemia Hematemesis #Sepsis due to acute gastroenteritis #Possible esophagitis #Upper GI bleed #anterolisthesis # history of alcohol use disorder GI prophylaxis: Protonix 40 mg IV b.i.d. DVT prophylaxis: Held due to GI bleed Diet: NPO 03/11/2025: doing a bit better, pending EGD per GI 03/12/2025: pending EGD. 03/13/2025: completed EGD on Friday. still has some pain will advance diet and if does well, d/c within 24 hours 03/14/2025: still has pain after EGD. possible d/c in 24 hours Plan discussed with: Patient My Orders My Orders Orders - RUTHY ANN DO Procedure Category Date Status Time Vital Signs RAMIN 03/14/25 In Process 18:28 Administer Blood RAMIN 03/14/25 In Process Products 18:28 Dietary Evaluation Review Comments: 1) If patient remains NPO > 7 days, consider EN/TPN to meet at least 75% estimated daily needs 2) Advance to cardiac diet when medically feasible 3) Follow-up with gastroenterology and cardiology 4) Follow-up with social welfare clerk r/t ETOH abuse 5) Continue to monitor I&O, labs, and skin integrity Expected Outcomes/Goals: 1) patient to receive nutritional support within 7 days of NPO status 2) labs to improve 3) diet to advance 4) f/u in 3-5 days RUTHY ANN DO Mar 15, 2025 14:21
--- NOTE | 2025-03-15 14:22 | DVHDS2 ---
Discharge Summary Date of Admission Mar 10, 2025 at 23:56 Date of Discharge: Mar 15, 2025 Labs/Diagnostic Data: Laboratory Results Test 03/15/25 07:57 03/15/25 05:45 03/11/25 06:53 03/11/25 00:52 White Blood Count 6.2 10^3/uL (4.4-10.8) Red Blood Count 3.76 10^6/uL (4.0-5.20) Hemoglobin 9.2 g/dL (12.2-16.2) Hematocrit 28.8 % (36.0-46.0) Mean Corpuscular Volume 76.6 fL (80.0-100.0) Mean Corpuscular Hemoglobin 24.4 pg (28.0-32.0) Mean Corpuscular Hemoglobin Concent 31.8 g/dL (32.0-36.0) Red Cell Distribution Width 22.0 % (11.8-14.3) Platelet Count 376 10^3/uL (140-450) Mean Platelet Volume 8.7 fL (6.9-10.8) Neutrophils (%) (Auto) 67.3 % (37.0-80.0) Lymphocytes (%) (Auto) 18.9 % (10.0-50.0) Monocytes (%) (Auto) 10.3 % (0.0-12.0) Eosinophils (%) (Auto) 2.2 % (0.0-7.0) Basophils (%) (Auto) 1.3 % (0.0-2.0) Neutrophils # (Auto) 4.2 10 ^3/uL (1.6-8.6) Lymphocytes # (Auto) 1.2 10 ^3/uL (0.4-5.4) Monocytes # (Auto) 0.6 10 ^3/uL (0-1.3) Eosinophils # (Auto) 0.1 10 ^3/uL (0-0.8) Basophils # (Auto) 0.1 10 ^3/uL (0-0.2) Nucleated Red Blood Cells 0.2 % Iron Level 35 ug/dL (50-170) Total Iron Binding Capacity 283 ug/dL (250-425) Percent Iron Saturation 12.4 % (15-50) Vitamin B12 Level 266 pg/mL (211-911) Prothrombin Time 11.3 sec (9.3-11.8) Prothrombin Time INR 1.07 (0.9-1.15) Activated Partial Thromboplast Time 25.0 SEC (24.5-34.5) Sodium Level 137 mmol/L (136-145) Potassium Level 3.3 mmol/L (3.5-5.1) Chloride Level 105 mmol/L (98-107) Carbon Dioxide Level 24 mmol/L (20-31) Anion Gap 8 (5-15) Blood Urea Nitrogen 17 mg/dL (9-23) Creatinine 0.46 mg/dL (0.550-1.02) Glomerular Filtration Rate Calc 114 mL/min (>90) BUN/Creatinine Ratio 37.0 (10.0-20.0) Serum Glucose 125 mg/dL (74-106) Lactic Acid Level 0.9 mmol/L (0.4-2.0) Calcium Level 7.7 mg/dL (8.7-10.4) Ferritin 9.5 ng/mL (10-291) Total Bilirubin 0.3 mg/dL (0.2-1.0) Aspartate Amino Transferase (AST) 11 U/L (13-40) Alanine Aminotransferase (ALT) < 9 U/L (7-40) Alkaline Phosphatase 96 U/L (46-116) Total Protein 6.4 g/dL (5.7-8.2) Albumin 3.8 g/dL (3.2-4.8) Influenza Type A Antigen Negative (Negative) Influenza Type B Antigen Negative (Negative) SARS-CoV-2 Antigen (Rapid) Negative (NEGATIVE) Test 03/10/25 21:14 Differential Total Cells Counted 100.0 (100) Neutrophils % (Manual) 90 (37.0-80.0) Band Neutrophils % (Manual) 2 Lymphocytes % (Manual) 2 (10.0-50.0) Monocytes % (Manual) 6 (0-12) Eosinophils % (Manual) 0 (0-7) Basophils % (Manual) 0 (0.0-2.0) Metamyelocytes % (manual) 0 Myelocytes % (Manual) 0 Promyelocytes % (Manual) 0 Blast Cells % (Manual) 0 Reactive Lymphocytes 0 Platelet Estimate Increased Hypochromasia (manual) Moderate Anisocytosis (manual) Slight Microcytosis Moderate Lipase 26 U/L (12-53) Beta HCG, Quantitative 3.2 mIU/mL (1.5-4.2) Plasma/Serum Blood Alcohol 3.0 mg/dL (<10) Other Laboratory Tests 03/15/25 05:45 03/11/25 06:53 Brief Hx & Hospital Course: acute Abdominal pain Enteritis Anemia Hematemesis #Sepsis due to acute gastroenteritis #Possible esophagitis #Upper GI bleed #anterolisthesis # history of alcohol use disorder GI prophylaxis: Protonix 40 mg IV b.i.d. DVT prophylaxis: Held due to GI bleed Diet: NPO 03/11/2025: doing a bit better, pending EGD per GI 03/12/2025: pending EGD. 03/13/2025: completed EGD on Friday. still has some pain will advance diet and if does well, d/c within 24 hours 03/14/2025: still has pain after EGD. possible d/c in 24 hours 03/15/2025: discharged to [facility] care Condition at Discharge: Fair Final Diagnosis/Problems List see above Discharge Disposition: Home Discharge Instruct/Medications Diet: Cardiac 2g Na,low cholest Activity: No Restrictions, As Tolerated No Active Prescriptions or Reported Meds Discharge Statement: "Patient was advised to return to the ER or call 911 if any headaches, dizziness, shortness of breath, chest pain, abdominal pain, bleeding, fevers, or worsening of medical condition. Patient was counseled about treatment plan, medications, possible side effects, patientverbalized understanding. All questions were answered to the best of my ability. This discharge took greater then 30 minutes in planning, reviewing documentation, counseling the patient, and discussing with other team members." ASSESSMENT ASSESSMENT Assessment RUTHY ANN DO Mar 15, 2025 14:22
--- NOTE | 2025-03-15 20:29 | DVHPN2 ---
Progress Note - Dictate Date Seen: Mar 15, 2025 Medical Necessity Reason Pt with a Central, PICC or Fol: No Subjective No new complaints, hemoglobin is 9.2; patient was transfused 1 unit PRBC Stool for occult blood is pending EGD findings noted:Patient had esophagitis with possible small Yeimy-Palmer tear with no active bleeding bile gastritis vital signs Vital Sign Date Time Temp Pulse Resp B/P (MAP) Pulse Ox O2 Delivery O2 Flow Rate FiO2 03/15/25 13:00 98.2 78 18 125/84 (98) 97 98.2 03/15/25 08:00 Room Air* 0 21 Total Intake and Output 03/14/25 03/14/25 03/15/25 15:00 23:00 07:00 Intake Total 50 ml 300 ml 1000 ml Balance 50 ml 300 ml 1000 ml objective General Appearance: Alert, Oriented X3, Cooperative, Not in acute distress HEENT: Atraumatic, Mucous membranes moist/pink Respiratory: Clear to auscultation, Normal air movement, No added sounds Cardiovascular: Regular rate, Normal S1, Normal S2, No murmurs Abdominal: Active bowel sounds, Soft, no distention, tenderness in all quadrants of the abdomen Extremities: No edema, Normal pulses, No tenderness/swelling Skin: No Significant rash, except past surgical scars Neuro: Normal speech, sensorimotor deficits none Psych/Mental Status: Mental status NL, Mood NL Nurse was there as slat grader during examination laboratory and microbiology Laboratory Tests 03/15/25 05:45 03/11/25 06:53 Test 03/11/25 06:53 Range/Units Serum Glucose 125 H 74-106 mg/dL Problems(with codes): (1) Yeimy-Palmer tear (2) Anemia (3) Hiatal hernia (4) Intractable nausea and vomiting Prognosis Plan Discharge planning is in progress Continue Protonix 40 mg p.o. twice a day Carafate 1 g p.o. twice a day Advance diet slowly as tolerated Outpatient follow up with GI for elective colonoscopy Dietary Evaluation Review Comments: 1) If patient remains NPO > 7 days, consider EN/TPN to meet at least 75% estimated daily needs 2) Advance to cardiac diet when medically feasible 3) Follow-up with gastroenterology and cardiology 4) Follow-up with social and human services assistant r/t ETOH abuse 5) Continue to monitor I&O, labs, and skin integrity Expected Outcomes/Goals: 1) patient to receive nutritional support within 7 days of NPO status 2) labs to improve 3) diet to advance 4) f/u in 3-5 days Plan discussed with: Other (Nurse) ELA RAMIREZ MD Mar 15, 2025 20:29
[2025-03-20 02:00] LABS: Vitamin B1, Whole Blood 116.9 nmol/L (66.5-200.0)
== END 2025-03-15 17:13 | disposition home or self-care (01) | DRG 720 ==
LOC: ER 20:32 → EDBD 20:32 → OVERFLOW 23:56 → EAST 03-11 16:32 → TELE-EAST 03-15 08:54
PROVIDERS: ADMIT Internal Medicine; ATTEND Internal Medicine
PROC: 0DJ08ZZ Inspection of Upper Intestinal Tract, Via Natural or Artificial Opening Endoscopic (ICD-10-PCS; principal; 2025-03-12 15:08)
PROC: 30233N1 Transfusion of Nonautologous Red Blood Cells into Peripheral Vein, Percutaneous Approach (ICD-10-PCS; 2025-03-15)
DX: A41.9 Sepsis, unspecified organism (principal); K22.6 Gastro-esophageal laceration-hemorrhage syndrome; K20.91 Esophagitis, unspecified with bleeding; Z20.822 Contact with and (suspected) exposure to COVID-19; K29.61 Other gastritis with bleeding; A04.9 Bacterial intestinal infection, unspecified; D64.9 Anemia, unspecified; M43.10 Spondylolisthesis, site unspecified; K44.9 Diaphragmatic hernia without obstruction or gangrene; I12.9 Hypertensive chronic kidney disease with stage 1 through stage 4 chronic kidney disease, or unspecified chronic kidney disease; N18.9 Chronic kidney disease, unspecified; F17.210 Nicotine dependence, cigarettes, uncomplicated; Z88.7 Allergy status to serum and vaccine
CPT/HCPCS: 36415; 36430; 71045; 74176; 76705; 80053; 80320; 82607; 82728; 83540; 83550; 83605; 83690; 84425; 84702; 85007; 85025; 85027; 85610; 85730; 86850; 86900; 86901; 86920; 87040; 87426; 87804; 93005; G0378; J1756; J2250; J2405; J2470; J3490